=== PATIENT | male | born 2000 | race Two or more races ===

== ENCOUNTER 2024-09-26 19:25 | Emergency (ER) | payer MEDICAID, OTHER ==
[~2024-09-26] VITALS: Ht 152.4 cm; Wt 43.8 kg
--- NOTE | 2024-09-26 20:05 | ED.PDOC ---
Back pain HPI HPI Comments PATIENT COMES WITH C/C OF LEFT LOWER LEG PAIN OF INJURY A MONTH AGO. PATIENT REPORTS HE TWISTED AND HEARD A POP A MONTH AGO, TODAY HE WAS DRIVING AND HAD INCREASED PAIN 7/10 PAIN. Denies numbness weakness Chief Complaint: Lower Extremity Time Seen by MD: 19:34 Reviewed Notes: Nurses Notes, Medications, Allergies Home Meds Active Scripts Nabumetone (Nabumetone) 500 Mg Tab, 1 TAB PO BID PRN for 10 Days, #20 TAB Prov:CHRIS EVANS EMPLOYEE ADVISER 09/26/24 Information Source: Patient Mode of Arrival: Ambulatory Past Medical History PAST MEDICAL HISTORY: Denies Surgical History: Denies all surgeries Family History Family History: Unknown Social History Smoker: Non-Smoker Alcohol: Denies ETOH Use Drugs: Denies Drug Use Constitutional: denies: chills, diaphoresis, fatigue, fever, malaise, sweats, weakness, others EENTM: denies: blurred vision, double vision, ear bleeding, ear discharge, ear drainage, ear pain, ear ringing, eye pain, eye redness, hearing loss, mouth pain, mouth swelling, nasal discharge, nose bleeding, nose congestion, nose pain, photophobia, tearing, throat pain, throat swelling, voice changes, others Respiratory: denies: cough, hemoptysis, orthopnea, SOB at rest, shortness of breath, SOB with excertion, stridor, wheezing, others Cardiovascular: denies: chest pain, dizzy spells, diaphoresis, Dyspnea on exertion, edema, irregular heart beat, left arm pain, lightheadedness, palpitations, PND, syncope, others Gastrointestinal: denies: abdomen distended, abdominal pain, blood streaked bowels, constipated, diarrhea, dysphagia, difficulty swallowing, hematemesis, melena, nausea, poor appetite, poor fluid intake, rectal bleeding, rectal pain, vomiting, others Genitourinary: denies: burning, dysuria, flank pain, frequency, hematuria, incontinence, penile discharge, penile sore, pain, testicle pain, testicle swelling, urgency, others Neurological: denies: dizziness, fainting, headache, left sided numbness, left sided weakness, numbness, paresthesia, pre-existing deficit, right sided numbness, right sided weakness, seizure, speech problems, tingling, tremors, weakness, others Musculoskeletal: reports: joint pain; denies: back pain, gout, joint swelling, muscle pain, muscle stiffness, neck pain, others Integumetry: denies: bruises, change in color, change in hair/nails, dryness, laceration, lesions, lumps, rash, wounds, others Allergic/Immunocompromised: denies: Difficulty Healing, Frequent Infections, Hives, Itching, others Hematologic/Lymphatic: denies: anemia, blood clots, easy bleeding, easy bruising, swollen glands, others Endocrine: denies: excessive hunger, excessive sweating, excessive thirst, excessive urination, flushing, intolerance to cold, intolerance to heat, unexplained weight gain, unexplained weight loss, others Psychiatric: denies: anxiety, bipolar disorder, depression, hopeless, panic disorder, schizophrenia, sleepless, suicidal, others Physical Exam General Appearance: No Apparent Distress, Normal HEENT: Pharynx Normal Neck: Full Range of Motion Respiratory: Lungs Clear, No Respiratory Distress, Normal Breath Sounds Cardiovascular: No Murmur, Normal Peripheral Pulses, Regular Rate/Rhythm Breast Exam: Deferred Gastrointestinal: Non Tender, Soft Genitalia: Deferred Pelvic: Deferred Rectal: Deferred Extremities: Normal capillary refill, Normal range of motion, No pedal edema Musculoskeletal : Location: Left (Moderate tenderness medial aspect of right knee pain shooting down medial knee to mid cheung. Negative Carter's negative drawer test negative ballottement. No obvious visible signs of trauma. Strength sensory motion intact positive pedal pulse positive pedal pulse) Apperance: Normal Neurologic: Alert, in house cra II-XII nml as Tested, No Motor Deficits, Normal Affect, Normal Mood, No Sensory Deficits Cerebellar Function: Normal Reflexes: Normal Skin: Dry, Normal Color, Warm Lymphatic: No Adenopathy Was a procedure done? Was a procedure done?: No Back Pain Differential Dx Differential Diagnosis: Fracture, Musculoskeletal Pain X-Ray, Labs, Meds, VS Vital Signs Date Time Temp Pulse Resp B/P (MAP) Pulse Ox O2 Delivery O2 Flow Rate FiO2 09/26/24 20:46 72 16 96 Room Air 09/26/24 20:15 97.8 72 16 137/80 (99) 96 97.8 09/26/24 19:27 98.1 88 16 142/83 96 98.1 Current Medications Medications (Trade) Dose Ordered Sig/Sneha Route Start Time Stop Time Status Last Admin Ketorolac Tromethamine (Toradol Injection) 60 mg ONCE ONCE IM 09/26/24 20:15 09/26/24 20:16 DC 09/26/24 20:46 Acetaminophen/ Hydrocodone Bitart ([place] 5/325MG Tab) 1 tab ONCE ONCE PO 09/26/24 20:15 09/26/24 20:16 DC 09/26/24 20:46 X-Ray, Labs, Meds, VS Comment Left knee x-ray shows osteochondroma. Patient given Toradol 60 mg IM and [place] 5 mg p.o.. Patient wrapped in Dixon wrap and crutches provided. Patient reports improvement in pain and function requesting discharge at this time. Script trial of NSAID advised take medication as prescribed side effects discussed. Advised to follow up with her PCP in 2-3 days advised her on ER return precautions patient indicates understanding and agrees with discharge plan of care. Time of 1ST Reevaluation: 19:45 Reevaluation 1ST: Unchanged Time of 2ND Reevaluation: 21:15 Reevaluation 2ND: Improved Patient Education/Counseling: Diagnosis, Treatment, Prognosis, Need For Follow Up Family Education/Counseling: No Family Present SEPSIS Sepsis Screen Date sepsis recognized/suspect: Sep 26, 2024 Time Sepsis recognized/suspect: 1929 Recent Procedure: No On Antibiotic Therapy: No Respiratory Rate >20: No Heart Rate >90: No Temp<36 C (96.8 F) or >38.3 C: No SBP <90 or MAP <65 mmHG: No New Acute Mental Status Change: No Is the patient on CPAP, BIPAP,: No Physician Orders L Knee 3v Xray (09/26/24 20:05) Vital Signs Date Time Temp Pulse Resp B/P (MAP) Pulse Ox O2 Delivery O2 Flow Rate FiO2 09/26/24 20:46 72 16 96 Room Air 09/26/24 20:15 97.8 72 16 137/80 (99) 96 97.8 09/26/24 19:27 98.1 88 16 142/83 96 98.1 Medications Medications Dose Ordered Sig/Sneha Route Start Time Stop Time Status Last Admin Dose Admin Acetaminophen/ Hydrocodone Bitart 1 tab ONCE ONCE PO 09/26/24 20:15 09/26/24 20:16 DC 09/26/24 20:46 Ketorolac Tromethamine 60 mg ONCE ONCE IM 09/26/24 20:15 09/26/24 20:16 DC 09/26/24 20:46 Departure 1 Departure Time of Disposition: 21:20 Impression: Primary Impression: Osteochondroma of left tibia Disposition: HOME / SELF CARE / HOMELESS Condition: Stable e-Prescriptions Nabumetone (Nabumetone) 500 Mg Tab 1 TAB PO BID PRN for 10 Days, #20 TAB Prov: CHRIS EVANS 09/26/24 Discharged With: Self Critical Care Note Critical Care Time?: No Stability Stability form required: No CHRIS EVANS Sep 26, 2024 20:05
[2024-09-26 20:15] VITALS: BP 137/80; TEMP 97.8
[2024-09-26 20:46] VITALS: PULSE 72; RESP 16; O2SAT 96
[2024-09-26] MEDS: KETOROLAC TROMETH 60MG/2ML VIAL IM ONE (20:46)
[2024-09-26] MEDS: HYDROcodone-ACET 5/325MG TAB PO ONE (20:46)
--- NOTE | 2024-09-26 21:13 | DVH ---
CLINICAL INDICATION: left knee injury TECHNIQUE: XY L KNEE 3V XRAY Comparison: None FINDINGS/IMPRESSION: : There is no evidence of acute fracture or dislocation. 1.7 cm excrescence of cortical bone directed away from the joint arising from the medial proximal tib ial metaphysis consistent with osteochondroma. Soft tissues are unremarkable.
[2024-09-26] MEDS ORDERED: NABU-72 PO (21:26)
== END 2024-09-26 21:52 | disposition home or self-care (01) ==
LOC: ER 19:25
DX: D16.22 Benign neoplasm of long bones of left lower limb (principal)
CPT/HCPCS: 73562; 96372; 99283; J1885